=== PATIENT | female | born 1990 | race Caucasian/White ===

== ENCOUNTER 2018-06-19 01:17 | Emergency (ER) | payer BC, OTHER ==
[2018-06-19] MEDS ORDERED: Lidocaine 1% PF 5 ML VIAL ONE (01:42)
[2018-06-19] MEDS ORDERED: Adacel (T-DAP) 0.5 ML SYRINGE ONE (01:42)
== END 2018-06-19 03:40 | disposition home or self-care (01) ==
LOC: SCSER 01:17
DX: S01.551A Open bite of lip, initial encounter (principal); S01.511A Laceration without foreign body of lip, initial encounter; W54.0XXA Bitten by dog, initial encounter
CPT/HCPCS: 12011; 90471; 90715; J2001